=== PATIENT | male | born 1955 | race African-American/Black ===

== ENCOUNTER 2017-01-30 07:10 | Emergency (ER) | payer SELFPAY ==
[2017-01-30] MEDS ORDERED: Acetaminophen 325 MG TAB ONE (07:40)
== END 2017-01-30 07:45 | disposition home or self-care (01) ==
LOC: BURERS 07:10
DX: I10 Essential (primary) hypertension (principal); R51 Headache; E78.5 Hyperlipidemia, unspecified; K21.9 Gastro-esophageal reflux disease without esophagitis; B20 Human immunodeficiency virus [HIV] disease; F17.210 Nicotine dependence, cigarettes, uncomplicated
CPT/HCPCS: 99283

== ENCOUNTER 2017-02-16 22:17 | Emergency (ER) | payer SELFPAY ==
[2017-02-16 23:15] LABS: #Basophils 0.1 thou/uL (0.0-0.2); #Eosinphils 0.2 thou/uL (0.0-0.7); #Lymphocytes 1.7 thou/uL (1.20-3.40); #Monocytes 0.7 thou/uL (0.11-0.59); %Lymphocytes 25.8 % (21.0-51.0); %Neutrophils 60.3 % (42.0-75.0); Hemoglobin 12.4 g/dL (14.0-18.0); Mean Corpuscular HGB CONC 33.5 g/dL (32.0-36.0); Mean Corpuscular Hemoglobin 31.4 pg (27.0-31.0); Mean Corpuscular Volume 93.8 fl (80.0-94.0); Mean Platelet Volume 8.2 fL (7.4-10.4); Platelet Count 236 thou/uL (130-400); RBC Distribution Width 14.6 % (11.5-14.5); Red Blood Cell (RBC) Count 3.94 mill/uL (4.70-6.10); White Blood Cell (WBC) Count 6.6 thou/uL (4.8-10.8)
[2017-02-16 23:26] LABS: Acetaminophen Less than 6.0 mcg/mL (10.0-30.0); Alcohol 84 mg/dL (Less than 10); Salicylate Less than 8.0 mg/dL (15.0-30.0)
[2017-02-16 23:28] LABS: ALT (SGPT) 18 U/L (8-55); AST (SGOT) 26 U/L (5-34); Albumin 3.6 g/dL (3.4-4.8); Alkaline Phosphatase 75 U/L (40-150); Anion Gap 16 mmol/L (10-20); BUN (Urea Nitrogen) 12 mg/dL (8.4-25.7); Bilirubin, Total 0.4 mg/dL (0.2-1.2); Calc. Creatinine Clearance 0 mL/min (70-130); Calcium 8.4 mg/dL (7.8-10.44); Carbon Dioxide 19 mmol/L (23-31); Chloride 110 mmol/L (98-107); Estimated GFR-MDRD 77; Globulin 3.4 g/dL (2.4-3.5); Glucose 110 mg/dL (80-115); Potassium 3.4 mmol/L (3.5-5.1); Sodium 142 mmol/L (136-145)
[2017-02-16 23:30] LABS: Troponin I 0.011 ng/mL (< 0.028)
[2017-02-16 23:54] LABS: CKMB 8.7 ng/mL (0-6.6)
--- NOTE | 2017-02-17 13:21 | RAD ---
CHEST 1 VIEW: HISTORY: Chest pain. COMPARISON: 11/05/16. FINDINGS: The cardiac silhouette is magnified by projection. Pulmonary vasculature is unremarkable. Mediasti num is midline. There is no confluent airspace consolidation or evidence of pneumothorax. telemetry monitor leads overlie the chest. IMPRESSION: No active cardiopulmonary abnormalities are demonstrated. POS: [facility]
== END 2017-02-17 00:01 | disposition home or self-care (01) ==
LOC: BURERS 22:17
DX: F10.129 Alcohol abuse with intoxication, unspecified (principal); E78.5 Hyperlipidemia, unspecified; B20 Human immunodeficiency virus [HIV] disease; K21.9 Gastro-esophageal reflux disease without esophagitis; I10 Essential (primary) hypertension; F17.210 Nicotine dependence, cigarettes, uncomplicated; Z79.899 Other long term (current) drug therapy
CPT/HCPCS: 71010; 80053; 80307; 82553; 84484; 85025; 93005; 96360

== ENCOUNTER 2017-03-12 17:04 | Emergency (ER) | payer SELFPAY ==
[2017-03-12] MEDS ORDERED: Ketorolac Tromethamine 60 MG/2 ML VIAL ONE (17:25)
--- NOTE | 2017-03-12 18:09 | RAD ---
PA AND LATERAL CHEST: Date: 03-12-17 Comparison: 02-16-17 FINDINGS: The heart is mildly enlarged but there are no congestive changes or pleural effusions. No lobar cons olidations or effusions were seen. There has been no adverse change since the prior exam. IMPRESSION: Mild cardiomegaly but no definite acute findings. POS: HOME
== END 2017-03-12 17:50 | disposition home or self-care (01) ==
LOC: BURERS 17:04
DX: S22.41XA Multiple fractures of ribs, right side, initial encounter for closed fracture (principal); E78.5 Hyperlipidemia, unspecified; I10 Essential (primary) hypertension; K21.9 Gastro-esophageal reflux disease without esophagitis; B20 Human immunodeficiency virus [HIV] disease; F17.210 Nicotine dependence, cigarettes, uncomplicated; Y04.2XXA Assault by strike against or bumped into by another person, initial encounter
CPT/HCPCS: 71020; 96372; J1885